=== PATIENT | female | born 1985 | race Caucasian/White ===

== ENCOUNTER 2016-07-10 08:24 | Observation (INO) ==
[2016-07-10 09:29] LABS: Bilirubin,Urine Negative (Negative); Blood,Urine Negative (Negative); Clarity,Urine Clear (Clear); Color,Urine Yellow (Yellow); Glucose,Urine (UA) Normal (Normal); Ketones,Urine Negative (Negative); Leukocyte Esterase,Urine Negative (Negative); Nitrite,Urine Negative (Negative); PH,Urine 6.5 pH Units (5.0-8.0); Protein,Urine Trace mg/dL (Neg-Trace); Specific Gravity,Urine 1.015 (1.010-1.025); Urobilinogen,Urine Normal (Normal)
--- NOTE | 2016-07-10 09:29 | OB/GYN History & Physical ---
Date of Encounter: 07/10/16 Time of Encounter: 09:29 Assessment and Plan (1) Spontaneous onset of labor Current visit: Yes Status: Acute This morning around 9 AM the patient is dilated to 3 cm and 90% effaced. Plan is to allow for spontaneous labor. Patient states she is going to try to avoid an epidural but is open to having one depending on how her labor proceeds. We will continue labor management and anticipate vaginal delivery History of Present Illness Chief complaint: Labor HPI: Ms. Cope is a 31 year old female at 38 weeks, 5 days gestation here because having contractions every 45 minutes this morning. Her has been uncomplicated and and she has not been taking any medications. She is group B strep negative, HIV nonreactive hep B nonreactive, RPR negative, rubella immune, blood type O positive. She is having discomfort with contractions but otherwise denies any current complaints Past Med Surg Social Fam HX - Past Medical History Medical history: no medical history Psychiatric history: no psych history - Social History Smoking Status: Never smoker Smokeless Tobacco Status: No Alcohol use: none Drug use: none - Family History Mother Hx Family Neuromuscular Disorders: Yes (CVA X2) Obstetrical History - Pregnancies : 1 Medications and Allergies Pnv95/Ferrous Fumarate/FA [ Caplet] 1 tab PO DAILY 07/10/16 [History] Allergies Sulfa (Sulfonamide Antibiotics) Allergy (Verified 07/10/16 08:54) Hives Review of System OB - Constitutional Constitutional ROS IM: no chills, no fever(s) - Cardiovascular Cardiovascular: no chest pain, no palpitations - Respiratory Respiratory: no dyspnea Exam - Comments Comments: GENERAL: Well-developed, well-nourished in no apparent distress. Patient is alert and oriented x3. HEENT: Head is normocephalic and atraumatic. Extraocular muscles are intact. HEART: S1 and S2 normal. Regular rate and rhythm. No murmurs , rub, or gallops. LUNGS: Clear to auscultation bilaterally. No wheezing, rales or rhonchi. ABDOMEN: Soft, nontender. MUSCULOSKELETAL: No deformities. No cyanosis, clubbing, edema in all the extremities. PERIPHERAL VASCULAR: pulses are 2/4 bilaterally. NEUROLOGIC: No motor or sensory deficits. No focal deficits. SKIN: No rashes, ulceration or induration present. Results All other labs normal. - VTE Reasons for not Prescribing Prophylaxis: Treatment not Indicated - Low risk for VTE
== END 2016-07-10 10:16 | disposition home or self-care (01) ==
LOC: 1NENULAB
PROVIDERS: ADMIT Registered Nurse; ATTEND Obstetrics & Gynecology

== ENCOUNTER 2016-07-11 16:36 | Inpatient (IN) ==
[~2016-07-11 16:36] MED LIST: *HR* FentaNYL (PF) 100 MCG/2 ML VIAL IVP PRN; Famotidine 20 MG/2 ML VIAL IVP PRN; Naloxone 0.4 MG/ML INJ IVP PRN; Ondansetron 4 MG/2 ML VIAL IVP PRN
--- NOTE | 2016-07-11 17:13 | OB/GYN History & Physical ---
Date of Encounter: 07/11/16 Time of Encounter: 17:10 Assessment and Plan (1) Spontaneous onset of labor Current visit: No Status: Acute -Monitor normal labor progression. - Nubain for pain - Zofran for nausea - Patient declining epidural at this time. History of Present Illness HPI: Ms. Cope is a 31 year old female who is being sent from the office for spontaneous labor. She is 5 cm dilated and 100% effaced and a bulgy bag of water. She is 38 weeks and 6 days at this time. Patient denies spontaneous rupture of membranes however she is having a bloody show at this time. She is having consistent contractions that she can feel. She states they started this morning. She denies any complications. Past Med Surg Social Fam HX - Past Medical History Source: patient Medical history: no medical history Psychiatric history: no psych history - Past Surgical History Surgical History: other (T and A, pilonidal cyst removal,) - Social History Smoking Status: Never smoker Smokeless Tobacco Status: No Alcohol use: none Drug use: none - Family History Mother History Unknown: Yes Hx Family Neuromuscular Disorders: Yes (CVA X2) Hx Family Neurologic Disorders: Yes (CVA) Obstetrical History - Pregnancies : 1 Para: 0 Medications and Allergies Pnv95/Ferrous Fumarate/FA [ Caplet] 1 tab PO DAILY 07/10/16 [History] Allergies Sulfa (Sulfonamide Antibiotics) Allergy (Verified 07/10/16 08:54) Hives Review of System OB All systems PM: reviewed and no additional remarkable complaints except as stated - Constitutional Constitutional ROS IM: no chills, no fever(s), no headache(s) - Nose, mouth, and throat Nose, mouth and throat: no dizziness, no dysphagia, no headache(s), no vertigo - Cardiovascular Cardiovascular: palpitations (1 event today.), no chest pain, no dyspnea, no edema, no leg edema, no pedal edema, no syncope - Respiratory Respiratory: no cough, no dyspnea - Gastrointestinal Gastrointestinal: dyspepsia, loose stools (For the past 2 days. None today.), nausea (With contractions.), vomiting (With contractions ), no abdominal pain, no hematemesis, no melena - Genitourinary Genitourinary: amenorrhea, no urinary frequency, no urinary incontinence, no urinary urgency - Integumentary Integumentary: no rash Exam - Constitutional Constitutional: well developed, well nourished, average body habitus - HEENT HEENT: PERRL, Normocephaly, Mucus Membranes Moist - Neck Neck exam: full ROM, trachea midline - Lungs Respiratory exam: CTAB - Cardiovascular Cardiovascular exam: RRR - Abdomen Abdomen: Present: bowel sounds normal, gravid, non tender - Extremities Extremities exam: full ROM, warm, radial pulses palpable and symetrical Deep Tendon Reflex Grade: 3+ Normal But Brisk - Vagina Vagina: Present: normal moisture - Cervix Dilation: 5 Effacement: 100 - Uterus Uterus exam: Present: normal size, normal contour Results Result Diagrams: 07/11/16 16:45 07/11/16 16:45 All other labs normal. - VTE Reasons for not Prescribing Prophylaxis: Treatment not Indicated - Low risk for VTE - Attending Attestation I examined this patient and my medical decision-making was reviewed with the Resident Physician. I agree with the documented findings, disposition and treatment plan as described with my edits included above. Leslie Varma DO
[2016-07-11] MEDS ORDERED: *HR* Nalbuphine 20 MG/ML AMPUL IVP PRN (17:21)
[2016-07-11] MEDS ORDERED: *HR* Nalbuphine 20 MG/ML AMPUL ONE (17:22)
[2016-07-11 17:48] LABS: Basophils # 0.1 K/mcL (0.0-0.2); Basophils % 0.9 %; Eosinophils # 0.1 K/mcL (0.0-0.6); Eosinophils % 0.7 %; Hematocrit 41.6 % (35.3-44.9); Hemoglobin 14.3 g/dL (11.5-15.4); Immature Granulocytes % 1.6 % (0-4); Lymphocytes # 2.9 K/mcL (0.6-4.6); Lymphocytes % 35.2 %; Mean Corpuscular HGB Conc 34.4 g/dL (31.6-35.5); Mean Corpuscular Hemoglobin 30.7 pg (28.0-33.3); Mean Corpuscular Volume 89.3 fL (83.0-100.0); Mean Platelet Volume 11.4 fL (9.4-12.4); Monocytes # 0.6 K/mcL (0.0-1.3); Monocytes % 7.5 %; Neutrophils # 4.5 K/mcL (1.6-8.9); Platelet Count 182 K/mcL (140-400); Red Blood Count 4.66 M/mcL (3.82-4.97); Red Cell Distribution Width 12.2 % (11.5-14.5); Segmented Neutrophils % 54.1 %
[2016-07-11 17:49] LABS: Alanine Aminotransferase 34 Units/L (0-55); Aspartate Amino Transferase 41 Units/L (5-34); BUN/Creatinine Ratio 15 (6-26); Blood Urea Nitrogen 18 mg/dL (7-20); Uric Acid 7.1 mg/dL (2.6-6.0); eGFR For African Americans > 60 (> 60); eGFR For Non-African Americans 54 (> 60)
[2016-07-11 18:03] LABS: Lactate Dehydrogenase 525 Units/L (159-327)
[2016-07-11] MEDS ORDERED: *HR* Labetalol 20 MG/4 ML SYRINGE IVP ONE ×2 (21:00→21:01)
--- NOTE | 2016-07-11 21:45 | Anesthesia Evaluation PreOp ---
Date of Encounter: 07/11/16 Time of Encounter: 21:40 - Past History Planned Operation: labor epidural Cardiac History: Denies any Significant Hx Pulmonary History: Denies Any Significant HX PATIENT ACCESS DIRECTOR History: Denies Any Significant HX Other Medical History: Denies Any Significant HX Anesthesia History: No Prior Anesthetic Complications (T&A, pilonidal cyst, wisdom teeth ext.), Past Anesthesia : Yes Alcohol Use: none Drug use: none Medications and Allergies Pnv95/Ferrous Fumarate/FA [ Caplet] 1 tab PO DAILY 07/10/16 [History] Allergies Sulfa (Sulfonamide Antibiotics) Allergy (Verified 07/10/16 08:54) Hives - Meds/Allergy Pre-op Review Medications Reviewed: Yes Allergies Reviewed: Yes Beta Blockers on Current Med List: No Anesthesia Results - Labs 07/11/16 16:45 07/11/16 16:45 Anesthesia Exam vss Height: 5'5" Weight: 83 kg NPO (# of Hours): 8 Pain Scale: 8 Pain Scale Used: Numeric (1 - 10) - HEENT Pupil (Motor): Pupils equal, EOMI Mallampati: II Teeth: Normal Oral Opening: Greater than 3 - PATIENT ACCESS DIRECTOR LOC: Oriented PATIENT ACCESS DIRECTOR Motor: Normal RUE, Normal LUE, Normal RLE, Normal LLE, Normal Face PATIENT ACCESS DIRECTOR Sensory: Normal: RUE, LUE, RLE, LLE, Face - Cardiac Rhythm: Regular Murmur: None - Pulmonary Breath Sounds: bilateral Clear Respiratory Effort: Symmetrical Anesthesia Assess/Plan ASA Score: 2 Modified Jacki Scale for Level of Consciousness: Cooperative, oriented, and tranquil Anesthetic Plan: Regional Monitoring Plan: Standard Monitors
[2016-07-11] MEDS ORDERED: *HR* FentaNYL (PF) 100 MCG/2 ML VIAL EP ONE (21:51)
[2016-07-11] MEDS ORDERED: Bupivacaine-MPF 0.25% 10 ML VIAL EP ONE (21:51)
[2016-07-11] MEDS ORDERED: Epidural Premix (fent/bupiv) 110 ML EP SCH (22:00)
[2016-07-11] MEDS ORDERED: Mag Hydrox/Al Hydrox/Simeth 30 ML UDC PO ONE (23:01)
[2016-07-11] MEDS ORDERED: Bupivacaine-MPF 0.25% 10 ML VIAL ONE (23:36)
[2016-07-11] MEDS ORDERED: Epidural Premix (fent/bupiv) 110 ML EP ONE (23:36)
[2016-07-11] MEDS ORDERED: *HR* FentaNYL (PF) 100 MCG/2 ML VIAL ONE (23:36)
--- NOTE | 2016-07-12 00:17 | Anesthesia Procedures ---
Date of Encounter: 07/12/16 Time of Encounter: 23:40 Procedures: Anesthesia - Epidural/Spinal Patient ID/Chart reviewed: Yes Patient examined: Yes OB Eval: Gestational age: 38 OB Eval: : 1 OB Eval: Hx Para: 0 OB Eval: Dilated at (cm): 7 OB Eval: Contractions: Non-stressed pattern Consent Obtained: Yes Supplemental Oxygen: None/Room Air Site Prep: Aseptic Technique, Sterile prep and drape, Povidone-Iodine 1% Patient position: upright Local Anesthetic: Lidocaine 1% Amount of Local Anesthetic used: 3 Touhy Needle Gauge: 18 Touhy Needle Depth (cm): 5 Catheter Depth at Skin (cm): 16 Test Dose (1.5% Lido + Epi): Volume given (mls): 3 Test Dose Result: Negative Loading Dose: 0.25% Marcaine (mls): 8 Loading Dose: Fentanyl (mcg): 100 Loading Dose Administered: Thru Catheter Infusion Med: 0.125% Bupivacaine w/ 2 mcg/ml Fentanyl Infusion Rate (mls/hr): [address]: Tegaderm, Tape Interspace Used: L3-L4 Loss of Resistance (DINO): Yes Blood: No CSF: No Paresthesia: No Vitals + FHT's: 3 Vital Signs Time 2340 2345 2350 2355 0000 0005 0010 BP 140/86 137/90 136/86 140/84 1128/80 126/79 123/75 Pulse 77 64 64 71 72 61 66 FHTs 140 140 140 140 140 140 140
--- NOTE | 2016-07-12 01:51 | OB Labor Progress Note ---
Date of Encounter: 07/12/16 Time of Encounter: 01:49 Labor Progress Note - Subjective Subjective: Patient comfortable after epidural. No headache or visual changes. - Vital Signs Vital Signs: 130's/80's post epidural - Cervix Cervix: 7-8 cm/100%/-2 vertex - Heart Tones Heart Tones: 125 baseline, category 1 - [place]: q 8-10 minute contractions - Interventions Interventions: AROM with clear fluid. - Plan Plan: Continue expectant management in anticipation of vaginal delivery
[2016-07-12] MEDS ORDERED: Epidural Premix (fent/bupiv) 110 ML EP ONE ×3 (06:17→16:22)
[2016-07-12] MEDS: Ringers Solution, Lactated 1,000 ML IVC SCH ×2 (07:34→15:45)
[2016-07-12] MEDS ORDERED: ROPIVACAINE HCL/PF 0.5% 30 ML VIAL ONE (09:44)
[2016-07-12] MEDS ORDERED: *HR* FentaNYL (PF) 100 MCG/2 ML VIAL ONE (09:44)
--- NOTE | 2016-07-12 09:48 | OB Labor Progress Note ---
Date of Encounter: 07/12/16 Time of Encounter: 09:20 Labor Progress Note - Subjective Subjective: Patient is very comfortable this morning. She states she is having vaginal pressure. - Vital Signs Vital Signs: BP140's/80's, one 160/90 while laying on her arm - Cervix Cervix: 9/100/0 vertex - Heart Tones Heart Tones: category 1 - Plan Plan: Continue EFM with expectant management in anticipation of vaginal delivery. Continue to monitor blood pressure closely.
--- NOTE | 2016-07-12 09:55 | Anesthesia Progress Note ---
Date of Encounter: 07/12/16 Time of Encounter: 09:51 Anesthesia Note - Note Note: 07/12/16 09:53 c/o increased discomfront in vaginal area, near complete, FHR stable per RN's. neg aspiration, 7ml 0.5% rop and 100mcg fent VSS. 5ml then 4ml.
[2016-07-12] MEDS ORDERED: Oxytocin 20 units/ LR 1000 mL 20 UNIT/1,000 ML BAG IVC ONE ×4 (12:08→20:21)
[2016-07-12] MEDS ORDERED: Lidocaine 1% 20 ML MDV ONE (18:16)
--- NOTE | 2016-07-12 19:04 | OB/GYN Procedure Note ---
Delivery - Delivery Date: 07/12/16 Provider: Gilles Dalal Intrapartum events: prolonged 2nd stage>2.5hr Delivery augmentation: rupture of membranes Delivery monitor: external FHT, external uterine Anesthesia: local, epidural Estimated Blood Loss: 300 - Infant (s) Infant A Infant Delivery Date: 07/12/16 Infant Delivery Time: 18:06 Presentation: vertex Position: PENG Gender: Male Viability: Viable Pounds: 8 Ounces: 8 at 1 minute: 5 at 5 mins: 5 at 10 mins: 5 Shoulder Dystocia: not encountered Placenta: spontaneous Cord: 3 umbilical vessels - Repair Laceration Description: Perineal - 2nd Degree - Complications Delivery complications: none - Disposition Mom disposition: stable in LDR Lottie disposition: taken to nursery - Comments Comments: Pt s/p from PENG presentation. Pt had labial edema and was exhausted therefore MLE was cut prior to delivery to prevent anterior tears and to expedite delivery. The heart tracing did show occ variables, but had excellent variabiltiy. No shoulder dystocia was experienced. 2nd degree MLE was repaired with 3-0 vicryl under local and epidural anesthesia. We had spont delivery of normal placenta with 3vc. Mother and recovered in LDR.
[2016-07-12] MEDS ORDERED: Oxytocin 20 units/ LR 1000 mL 20 UNIT/1,000 ML BAG IV SCH (20:21)
[2016-07-12] MEDS ORDERED: Measles/Mumps/Rubella Vacc 0.5 ML VIAL SQ PRN (20:21)
[2016-07-12] MEDS ORDERED: Ibuprofen 600 MG TABLET PO PRN (20:21)
[2016-07-12] MEDS ORDERED: Rho Immune Globulin 1,500 UNIT SYRINGE IM PRN (20:21)
[2016-07-13 05:34] LABS: Basophils % 0.2 %; Eosinophils % 0.3 %; Hemoglobin 11.7 g/dL (11.5-15.4); Immature Granulocytes % 0.8 % (0-4); Lymphocytes # 2.7 K/mcL (0.6-4.6); Lymphocytes % 19.7 %; Mean Corpuscular HGB Conc 35.5 g/dL (31.6-35.5); Mean Corpuscular Hemoglobin 31.5 pg (28.0-33.3); Mean Corpuscular Volume 88.7 fL (83.0-100.0); Mean Platelet Volume 10.9 fL (9.4-12.4); Monocytes # 0.9 K/mcL (0.0-1.3); Monocytes % 6.7 %; Neutrophils # 9.8 K/mcL (1.6-8.9); Platelet Count 134 K/mcL (140-400); Red Blood Count 3.72 M/mcL (3.82-4.97); Red Cell Distribution Width 12.4 % (11.5-14.5); Segmented Neutrophils % 72.3 %
[2016-07-13 05:46] LABS: Alanine Aminotransferase 40 Units/L (0-55); Aspartate Amino Transferase 58 Units/L (5-34); BUN/Creatinine Ratio 14 (6-26); Blood Urea Nitrogen 19 mg/dL (7-20); Uric Acid 8.3 mg/dL (2.6-6.0); eGFR For African Americans 57 (> 60); eGFR For Non-African Americans 47 (> 60)
[2016-07-13 05:47] LABS: Lactate Dehydrogenase 330 Units/L (159-327)
[2016-07-13] MEDS: Acetaminophen 325 MG TABLET PO PRN ×2 (07:58→20:06)
[2016-07-13] MEDS: Prenatal Vit/FA 1 EACH TABLET PO SCH (07:59)
--- NOTE | 2016-07-13 10:44 | OB/GYN Progress Note ---
Date of Encounter: 07/13/16 Time of Encounter: 10:42 - Assessment and Plan (1) Spontaneous onset of labor Current Visit: Yes Status: Acute (2) Status post vaginal delivery Current Visit: Yes Status: Acute (3) Pre-eclampsia Current Visit: Yes Status: Acute Repeat labs ordered for tomorrow. BP <160/100. Better thru the night. Will continue to monitor for s/sx of severe. Currently asymptomatic. Increased creatine likely due to viral diarrheal illness and the pre-eclampsia. PO hydration encouraged. Will discontinue mack because swelling has improved. Qualifiers: Trimester: third trimester Qualified Code(s): O14.93 - Unspecified pre- eclampsia, third trimester Subjective - Subjective Principal diagnosis: s/p vaginal delivery Interval history: Patient is doing well. Catheter is still in place. She is tolerating PO without difficulty. She is ambulating without difficulty. is going well. Patient reports: appetite normal, pain well controlled, ambulating normally, no nauseated [place]: doing well, nursing well Objective - Latest Vital Signs Latest vital signs: Vital Signs Temp Pulse Resp BP Pulse Ox 07/13/16 08:03 18 07/13/16 07:40 97.7 F 64 16 144/97 99 07/13/16 04:00 98 F 72 18 116/83 97 07/13/16 02:40 97.6 F 63 16 120/78 97 07/13/16 00:15 99.6 F 68 20 135/91 96 07/12/16 23:00 98.8 F 60 20 147/92 97 07/12/16 22:30 98.2 F 66 16 158/88 96 Intake and Output 07/12/16 07/13/16 07/13/16 23:59 07:59 15:59 Intake Total 1490 / 1490 Output Total 1500 / 1500 3475 / 3475 Balance -1500 / -1500 -1984 / Intake: Oral 1490 / 1490 Output: Urine 1750 / 1750 Urethral (Mack) 1350 / 1350 Straight Cath 1500 / 1500 Catheter 1725 / 1725 Other: Weight 79 kg - Exam Lungs: bilateral: normal Chest: Normal S1, Normal S2 Extremities: Present: normal, edema. Absent: tenderness Abdomen: Present: normal appearance, soft Uterus: Present: normal, firm. Absent: tenderness - Labs Labs: Laboratory Results - last 24 hr 07/13/16 07/13/16 05:23 05:23 WBC 13.5 H D RBC 3.72 L Hgb 11.7 D Hct 33.0 L MCV 88.7 MCH 31.5 MCHC 35.5 RDW 12.4 Plt Count 134 L MPV 10.9 Immature Gran % 0.8 Seg Neutrophils % 72.3 Lymphocytes % 19.7 Monocytes % 6.7 Eosinophils % 0.3 Basophils % 0.2 Neutrophils # 9.8 H Lymphocytes # 2.7 Monocytes # 0.9 Eosinophils # 0.0 Basophils # 0.0 BUN 19 Creatinine 1.33 H Est GFR ( Amer) 57 L Est GFR (Non-Af Amer) 47 L BUN/Creatinine Ratio 14 Uric Acid 8.3 H AST 58 H ALT 40 Lactate Dehydrogenase 330 H
[2016-07-14 06:16] LABS: Basophils % 0.3 %; Eosinophils # 0.2 K/mcL (0.0-0.6); Eosinophils % 1.8 %; Hematocrit 35.5 % (35.3-44.9); Hemoglobin 12.2 g/dL (11.5-15.4); Immature Granulocytes % 1.6 % (0-4); Lymphocytes # 2.2 K/mcL (0.6-4.6); Lymphocytes % 17.1 %; Mean Corpuscular HGB Conc 34.4 g/dL (31.6-35.5); Mean Corpuscular Volume 90.1 fL (83.0-100.0); Mean Platelet Volume 10.2 fL (9.4-12.4); Monocytes # 0.9 K/mcL (0.0-1.3); Monocytes % 6.7 %; Neutrophils # 9.2 K/mcL (1.6-8.9); Platelet Count 149 K/mcL (140-400); Red Blood Count 3.94 M/mcL (3.82-4.97); Red Cell Distribution Width 12.3 % (11.5-14.5); Segmented Neutrophils % 72.5 %
[2016-07-14 06:31] LABS: Alanine Aminotransferase 37 Units/L (0-55); Aspartate Amino Transferase 51 Units/L (5-34); BUN/Creatinine Ratio 15 (6-26); Blood Urea Nitrogen 18 mg/dL (7-20); Lactate Dehydrogenase 293 Units/L (159-327); Uric Acid 8.1 mg/dL (2.6-6.0); eGFR For African Americans > 60 (> 60); eGFR For Non-African Americans 54 (> 60)
[2016-07-14] MEDS: Prenatal Vit/FA 1 EACH TABLET PO SCH (07:52)
[2016-07-14] MEDS: Acetaminophen 325 MG TABLET PO PRN (07:53)
[2016-07-14 07:55] VITALS: BP 136/92
[2016-07-14] MEDS ORDERED: Hydrocortisone 1% OINT 28 GM TUBE TP PRN (08:53)
[2016-07-14] MEDS ORDERED: Benzocaine/Menthol 56 GM AEROSOL SPRAY TP PRN (08:53)
--- NOTE | 2016-07-14 08:57 | Discharge Summary ---
Date of Encounter: 07/14/16 Time of Encounter: 08:54 - Discharge Diagnosis (1) Breast feeding status of mother Priority: Secondary Status: Acute Comments: Continue support prn (2) Elevated serum creatinine Priority: Secondary Status: Acute Comments: Encourage PO hydration repeat labs in 48 hours (3) Status post vaginal delivery Priority: Primary Status: Acute Comments: Continue routine care discharge home today follow up with Dr. Varma in 4-6 weeks - Discharge Medications Prescriptions: Breast Pump [BREAST PUMP] 1 each .ROUTE AD #1 each Docusate [Colace] 100 mg PO BID #60 capsule Home Medications: Pnv95/Ferrous Fumarate/FA [ Caplet] 1 tab PO DAILY 07/10/16 [History] Breast Pump [BREAST PUMP] 1 each .ROUTE AD #1 each 07/14/16 [Rx] Docusate [Colace] 100 mg PO BID #60 capsule 07/14/16 [Rx] Vit/FA 1 each PO DAILY tablet 07/14/16 [Rx] Allergies/Adverse Reactions: Allergies Sulfa (Sulfonamide Antibiotics) Allergy (Verified 07/10/16 08:54) Hives Data Procedures and tests throughout hospitalization: Laboratory Tests 07/11/16 07/11/16 07/13/16 16:45 16:45 05:23 WBC 8.2 13.5 H D RBC 4.66 3.72 L Hgb 14.3 11.7 D Hct 41.6 33.0 L MCV 89.3 88.7 MCH 30.7 31.5 MCHC 34.4 35.5 RDW 12.2 12.4 Plt Count 182 134 L MPV 11.4 10.9 Immature Gran % 1.6 0.8 Seg Neutrophils % 54.1 72.3 Lymphocytes % 35.2 19.7 Monocytes % 7.5 6.7 Eosinophils % 0.7 0.3 Basophils % 0.9 0.2 Neutrophils # 4.5 9.8 H Lymphocytes # 2.9 2.7 Monocytes # 0.6 0.9 Eosinophils # 0.1 0.0 Basophils # 0.1 0.0 BUN 18 Creatinine 1.18 H Est GFR ( Amer) > 60 Est GFR (Non-Af Amer) 54 L BUN/Creatinine Ratio 15 Uric Acid 7.1 H AST 41 H ALT 34 Lactate Dehydrogenase 525 H 07/13/16 07/14/16 07/14/16 05:23 06:01 06:01 WBC 12.7 H RBC 3.94 Hgb 12.2 Hct 35.5 MCV 90.1 MCH 31.0 MCHC 34.4 RDW 12.3 Plt Count 149 MPV 10.2 Immature Gran % 1.6 Seg Neutrophils % 72.5 Lymphocytes % 17.1 Monocytes % 6.7 Eosinophils % 1.8 Basophils % 0.3 Neutrophils # 9.2 H Lymphocytes # 2.2 Monocytes # 0.9 Eosinophils # 0.2 Basophils # 0.0 BUN 19 18 Creatinine 1.33 H 1.17 H Est GFR ( Amer) 57 L > 60 Est GFR (Non-Af Amer) 47 L 54 L BUN/Creatinine Ratio 14 15 Uric Acid 8.3 H 8.1 H AST 58 H 51 H ALT 40 37 Lactate Dehydrogenase 330 H 293 Labs on day of discharge: Labs from last 24 hours 07/14/16 07/14/16 06:01 06:01 WBC 12.7 H RBC 3.94 Hgb 12.2 Hct 35.5 MCV 90.1 MCH 31.0 MCHC 34.4 RDW 12.3 Plt Count 149 MPV 10.2 Immature Gran % 1.6 Seg Neutrophils % 72.5 Lymphocytes % 17.1 Monocytes % 6.7 Eosinophils % 1.8 Basophils % 0.3 Neutrophils # 9.2 H Lymphocytes # 2.2 Monocytes # 0.9 Eosinophils # 0.2 Basophils # 0.0 BUN 18 Creatinine 1.17 H Est GFR ( Amer) > 60 Est GFR (Non-Af Amer) 54 L BUN/Creatinine Ratio 15 Uric Acid 8.1 H AST 51 H ALT 37 Lactate Dehydrogenase 293 Date of admission: 07/11/16 16:36 Primary care physician: Jany Montes CNP Consults: 07/12/16 20:21 Consult to Regional Marketing Manager [CONS] Routine Comment: Vaginal delivery, consult needed Discharging clinician: Yady Short Anticipated date of discharge: 07/14/16 - Patient Status Disposition: Home, Self-Care Condition: Good Functional capacity at discharge: independent ambulation - Discharge Instructions Follow Up With: Jany Montes CNP [Primary Care Provider] - Leslie Varma DO [Partnered Physician] - - Diet and Activity Activity: increase activity as tolerated Diet: regular diet Hospital Course Delivery: Episiotomy: midline Laceration: none Other procedures: none complications: none Discharge diagnosis: IUP at term delivered [place] baby: male (breast feeding) Time Attestation: Total time spent providing and/or coordinating discharge services: Time Spent: Less than 30 minutes Exam - Constitutional Vitals: Temp Pulse Resp BP Pulse Ox 98.0 F 78 20 136/92 96 07/14/16 07:53 07/14/16 07:53 07/14/16 08:02 07/14/16 07:53 07/14/16 07:53 General appearance IM: A&O X 3, pleasant, answers questions appropriately - Respiratory Respiratory exam: Present: CTAB - Cardiovascular Cardiovascular exam IM: Present: RRR, +S1, +S2 - GI/Abdominal GI/Abdominal exam IM: normal bowel sounds - Uterine Tone: Firm Uterus Position: 2 Fingers Below Umbilicus, Midline - Extremities Exam Extremities exam IM: Present: full ROM, normal capillary refill, normal inspection - Neurological Exam Neurological exam: oriented X3, reflexes normal
== END 2016-07-14 09:21 | disposition home or self-care (01) | DRG 775 ==
LOC: 1NENULAB → 1NENUOBS 07-12 20:19
PROVIDERS: ADMIT Obstetrics & Gynecology; ATTEND Obstetrics & Gynecology

== ENCOUNTER 2018-06-16 06:00 | Inpatient (IN) ==
[2018-06-16] MEDS ORDERED: Ringers Solution, Lactated 1,000 ML ONE (06:13)
[2018-06-16] MEDS ORDERED: Famotidine 20 MG/2 ML VIAL IVP PRN (06:37)
[2018-06-16] MEDS ORDERED: Naloxone 0.4 MG/ML INJ IVP PRN (06:37)
[2018-06-16] MEDS ORDERED: *HR* Nalbuphine 10 MG/ML AMPUL IVP PRN (06:37)
[2018-06-16] MEDS ORDERED: Ondansetron 4 MG/2 ML VIAL IVP PRN (06:37)
[2018-06-16] MEDS ORDERED: Metoclopramide 10 MG/2 ML VIAL IVP PRN (06:37)
[2018-06-16] MEDS ORDERED: Epidural Premix (fent/bupiv) 110 ML EP SCH (06:45)
[2018-06-16] MEDS ORDERED: Ringers Solution, Lactated 1,000 ML IVC SCH (06:45)
[2018-06-16 06:53] LABS: Basophils % 0.6 %; Eosinophils # 0.1 K/mcL (0.0-0.6); Eosinophils % 1.2 %; Hematocrit 39.1 % (35.3-44.9); Hemoglobin 13.3 g/dL (11.5-15.4); Immature Granulocytes % 0.7 % (0-4); Lymphocytes # 2.4 K/mcL (0.6-4.6); Lymphocytes % 35.3 %; Mean Corpuscular Hemoglobin 31.3 pg (28.0-33.3); Mean Platelet Volume 10.7 fL (9.4-12.4); Monocytes # 0.6 K/mcL (0.0-1.3); Monocytes % 9.2 %; Neutrophils # 3.6 K/mcL (1.6-8.9); Platelet Count 172 K/mcL (140-400); Red Blood Count 4.25 M/mcL (3.82-4.97); Red Cell Distribution Width 12.3 % (11.5-14.5)
[2018-06-16] MEDS ORDERED: miSOPROStol 25 MCG TABLET PO SCH (08:00)
[2018-06-16 08:54] LABS: Amphetamine Screen,Urine Negative ng/mL (Cutoff=1000); Barbiturate Screen,Urine Negative ng/mL (Cutoff=200); Benzodiazepines Screen,Urine Negative ng/mL (Cutoff=200); Cannabinoid Screen,Urine Negative ng/mL (Cutoff = 50); Cocaine Screen,Urine Negative ng/mL (Cutoff= 300); Opiate Screen,Urine Negative ng/mL (Cutoff=300)
[2018-06-16 08:59] LABS: Phencyclidine Screen,Urine Negative ng/mL (Cutoff=25)
--- NOTE | 2018-06-16 09:38 | Anesthesia Evaluation PreOp ---
Date of Encounter: 06/16/18 Time of Encounter: 09:36 - Past History Planned Operation: JANIA Cardiac History: Denies any Significant Hx Pulmonary History: Denies Any Significant HX CHECK SCALER History: Denies Any Significant HX Other Medical History: Denies Any Significant HX Anesthesia History: No Prior Anesthetic Complications, Past Anesthesia : Yes (40wks) Alcohol Use: none Drug use: none Medications and Allergies Vit/FA 1 each PO DAILY tablet 07/14/16 [Rx] Aspirin [Lo-Dose Aspirin EC] 81 mg PO 06/16/18 [History] Allergy/AdvReac Type Severity Reaction Status Date / Time Sulfa (Sulfonamide Allergy Hives Verified 07/10/16 08:54 Antibiotics) - Meds/Allergy Pre-op Review Medications Reviewed: Yes Allergies Reviewed: Yes Beta Blockers on Current Med List: No Anesthesia Results - Labs 06/16/18 06:37 Anesthesia Exam O2 Sat Height 1.65 m Weight 78.9 kg NPO (# of Hours): 8 Pain Scale: 0 Pain Scale Used: Numeric (1 - 10) - HEENT Pupil (Motor): Pupils equal Mallampati: II Teeth: Normal Oral Opening: Greater than 3 - CHECK SCALER LOC: Oriented CHECK SCALER Motor: Normal RUE, Normal LUE, Normal RLE, Normal LLE, Normal Face CHECK SCALER Sensory: Normal: RUE, LUE, RLE, LLE, Face - Cardiac Rhythm: Regular Murmur: None JVD: No Carotid Bruit: No - Pulmonary Breath Sounds: bilateral Clear Respiratory Effort: Symmetrical Anesthesia Assess/Plan ASA Score: 2 Level of consciousness: Cooperative, Oriented Anesthetic Plan: General (plan b), Epidural (plan a) Autologous Blood: Yes Monitoring Plan: Standard Monitors
--- NOTE | 2018-06-16 11:15 | OB Labor Progress Note ---
Date of Encounter: 06/16/18 Time of Encounter: 11:13 Labor Progress Note - Subjective Subjective: Pt denies complaints at this time. - Cervix Cervix: /-2 - Heart Tones Heart Tones: Category I - [place]: irregular UC - Interventions Interventions: Lemus balloon placed using sterile technique. Balloon inflated with 60ml sterile water. Pt tolerated well. - Plan Physician notified: Yes
--- NOTE | 2018-06-16 12:19 | OB/GYN History & Physical ---
Date of Encounter: 06/16/18 Time of Encounter: 08:20 Assessment and Plan (1) 40 weeks gestation of Current visit: Yes Status: Acute (2) Elective induction of labor planned Current visit: Yes Status: Acute Cytotec po already administered. Frias bulb will be placed. History of Present Illness Chief complaint: induction of labor HPI: Ms. Cope is a 33 year old female G 2 P-1-0-0-1 at 40 0/7 weeks presents for induction of labor at term. She reports good movements. She denies any labor symptoms prior to arrival. Her has been complicated by history of pre-e with her first . Past Med Surg Social Fam HX - Past Medical History Source: patient Medical history: no medical history Psychiatric history: no psych history - Past Surgical History Surgical History: other Additional surgical history: T&A, wisdom tooth, cyst removal - Social History Smoking Status: Never smoker Smokeless Tobacco Status: No Alcohol use: none Drug use: none - Family History Mother Living Status: Still Living Hx Family Cardiac Disorders: Yes (x2 stroke) Hx Family Respiratory Disorders: No Hx Family Cancer: No Hx Family GI Disorders: No Hx Family Genitourinary Disorders: No Hx Family Endocrine Disorder: No Hx Family Musculoskeletal Disorders: No Hx Family Neuromuscular Disorders: No Hx Family Neurologic Disorders: No Hx Family HEENT Disorders: No Hx Family Autoimmune Disorders: No Hx Family Reproductive Disorders: No Hx Family Psychosocial Disorders: No Hx Family Medical Disorders: No Obstetrical History - Pregnancies : 2 Para: 1 - History/Complications History/Complications: pre-e Medications and Allergies Vit/FA 1 each PO DAILY tablet 07/14/16 [Rx] Aspirin [Lo-Dose Aspirin EC] 81 mg PO 06/16/18 [History] Allergy/AdvReac Type Severity Reaction Status Date / Time Sulfa (Sulfonamide Allergy Hives Verified 07/10/16 08:54 Antibiotics) Review of System OB All systems PM: reviewed and no additional remarkable complaints except as stated Exam - Constitutional Constitutional: well developed, well nourished, no acute distress, average body habitus - HEENT HEENT: EOMI - Lungs Respiratory exam: CTAB - Cardiovascular Cardiovascular exam: RRR - Abdomen Abdomen: Present: bowel sounds normal, gravid, non tender - Vulva Vulva: bilateral: normal - Cervix Dilation: 1 Effacement: 75 Station: -3 Results Result Diagrams: 06/16/18 06:37 All other labs normal. US - abdomen: report reviewed (EFW 3490 gm (7 lb 11 oz) on 06/10/18) - VTE Reasons for not Prescribing Prophylaxis: Treatment not Indicated - Low risk for VTE
--- NOTE | 2018-06-16 15:47 | OB Labor Progress Note ---
Date of Encounter: 06/16/18 Time of Encounter: 15:43 Labor Progress Note - Subjective Subjective: Pt denies complaints at this time. - Cervix Cervix: 4/80/-2 - Heart Tones Heart Tones: Category I - [place]: irregular - Interventions Interventions: AROM for small amount clear fluid. - Plan Physician notified: Yes Physician notified details: Dr. Varma
[2018-06-16] MEDS ORDERED: Oxytocin 20 units/ LR 1000 mL 20 UNIT/1,000 ML BAG IVC SCH (16:00)
[2018-06-16] MEDS ORDERED: Oxytocin 20 units/ LR 1000 mL 20 UNIT/1,000 ML BAG IVC ONE ×2 (16:00→23:11)
[2018-06-16] MEDS ORDERED: *HR* FentaNYL (PF) 100 MCG/2 ML VIAL ONE (17:51)
[2018-06-16] MEDS ORDERED: Lidocaine -MPF 1% 5 ML AMPUL ONE (17:52)
[2018-06-16] MEDS ORDERED: *HR* Ropivacaine/PF 0.2% 20 ML VIAL ONE (17:52)
[2018-06-16] MEDS ORDERED: *HR* Ropivacaine/PF 0.2% 20 ML VIAL EP ONE (18:30)
[2018-06-16] MEDS ORDERED: *HR* FentaNYL (PF) 100 MCG/2 ML VIAL EP ONE (18:30)
--- NOTE | 2018-06-16 18:33 | Anesthesia Procedures ---
Addendum entered and electronically signed by Jose Miguel Coats CRNA 06/18/18 08:15: Addendum entered and electronically signed by Kyle Alejandre CRNA 06/16/18 23:21: Delivery Date: 06/16/18 Infant Delivery Time: 21:09 Original Note: Date of Encounter: 06/16/18 Time of Encounter: 18:31 Procedures: Anesthesia - Epidural/Spinal Patient ID/Chart reviewed: Yes Patient examined: Yes OB Eval: : 2 OB Eval: Hx Para: 1 OB Eval: Dilated at (cm): 5 OB Eval: Contractions: Non-stressed pattern Consent Obtained: Yes Supplemental Oxygen: None/Room Air Site Prep: Aseptic Technique Patient position: upright Local Anesthetic: Lidocaine 1% Amount of Local Anesthetic used: 3 Touhy Needle Gauge: 18 Touhy Needle Depth (cm): 5 Catheter Depth at Skin (cm): 5 Test Dose (1.5% Lido + Epi): Volume given (mls): 3 Test Dose Result: Negative Loading Dose: 0.25% Marcaine (mls): 7 Loading Dose: Fentanyl (mcg): 100 Loading Dose Administered: Thru Touhy Needle Infusion Med: 0.125% Bupivacaine w/ 2 mcg/ml Fentanyl Infusion Rate (mls/hr): [address]: Tegaderm Interspace Used: L3-L4 Loss of Resistance (DINO): Yes Blood: No CSF: No Paresthesia: No
[2018-06-16] MEDS ORDERED: EPHEDrine 50 MG/ML VIAL ONE (18:41)
--- NOTE | 2018-06-16 21:36 | OB/GYN Procedure Note ---
Delivery - Delivery Date: 06/16/18 Provider: Leslie Varma Intrapartum events: none Delivery induction: AROM, oxytocin, mack, misoprostol Delivery monitor: external FHT, external uterine Anesthesia: epidural Quantitated Blood Loss: 300 - Infant (s) Infant A Infant Delivery Date: 06/16/18 Delivery Time: 21:09 Presentation: vertex Position: PENG Route of delivery: Gender: Male Viability: Viable at 1 minute: 8 at 5 mins: 9 Shoulder Dystocia: encountered (60 seconds) Shoulder Dystocia Maneuvers: Tram maneuver, suprapubic pressure Specimens collected: cord blood Placenta: spontaneous Cord: 3 umbilical vessels - Repair Episiotomy: none Laceration Description: Perineal - 1st Degree - Complications Delivery complications: none Delivery comments: Called to room with patient complete and +2 station. Under maternal effort she delivered a viable male with weight pending at the time of dictation and Apgars 8 and 9 at one and 5 minutes respectively over a first-degree perineal laceration. Following delivery of the head there was no nuchal cord encountered. Shoulder dystocia was encountered that resolved with Tram and suprapubic after 60 seconds. The was placed on mom's abdomen cord was allowed to cease pulsations prior to being double clamped and cut with assistance from the father. Cord blood was collected. Placenta delivered spontaneously, complete, and intact with a three-vessel cord. The first-degree perineal laceration was repaired in standard fashion using 0 Vicryl. Mother delivered with epidural anesthesia. Mother and infant are recovering in the LDR in stable condition. - Disposition Mom disposition: stable in LDR disposition: stable in LDR
[2018-06-16] MEDS ORDERED: Acetaminophen 325 MG TABLET PO PRN (23:11)
[2018-06-16] MEDS ORDERED: Ibuprofen 600 MG TABLET PO PRN (23:11)
[2018-06-17 08:15] VITALS: BP 113/71
--- NOTE | 2018-06-17 08:35 | Discharge Summary ---
Date of Encounter: 06/17/18 Time of Encounter: 08:32 - Discharge Diagnosis (1) Breast feeding status of mother Priority: Secondary Status: Acute Comments: support prn RX for breast pump (2) Status post vaginal delivery Priority: Primary Status: Acute Comments: Continue routine care discharge home today follow up with Dr Varma in 4-6 weeks - Discharge Medications Prescriptions: Breast Pump [BREAST PUMP] 1 each .ROUTE AD #1 each Home Medications: Vit/FA 1 each PO DAILY tablet 07/14/16 [Rx] Breast Pump [BREAST PUMP] 1 each .ROUTE AD #1 each 06/17/18 [Rx] Allergies/Adverse Reactions: Allergy/AdvReac Type Severity Reaction Status Date / Time Sulfa (Sulfonamide Allergy Hives Verified 07/10/16 08:54 Antibiotics) Data Procedures and tests throughout hospitalization: Laboratory Tests 06/16/18 06/16/18 06/16/18 06:37 06:37 07:50 WBC 6.8 RBC 4.25 Hgb 13.3 Hct 39.1 MCV 92.0 MCH 31.3 MCHC 34.0 RDW 12.3 Plt Count 172 MPV 10.7 Immature Gran % 0.7 Seg Neutrophils % 53.0 Lymphocytes % 35.3 Monocytes % 9.2 Eosinophils % 1.2 Basophils % 0.6 Neutrophils # 3.6 Lymphocytes # 2.4 Monocytes # 0.6 Eosinophils # 0.1 Basophils # 0.0 Urine Opiates Screen Negative Ur Barbiturates Screen Negative Ur Phencyclidine Scrn Negative Ur Amphetamines Screen Negative U Benzodiazepines Scrn Negative Urine Cocaine Screen Negative U Marijuana (THC) Screen Negative Ur Drug Screen Interp See Below Hep Bs Antigen Nonreactive Labs on day of discharge: Labs from last 24 hours 06/16/18 07:50 Urine Opiates Screen Negative Ur Barbiturates Screen Negative Ur Phencyclidine Scrn Negative Ur Amphetamines Screen Negative U Benzodiazepines Scrn Negative Urine Cocaine Screen Negative U Marijuana (THC) Screen Negative Date of admission: 06/16/18 06:05 Primary care physician: Jany Montes CNP Consults: 06/16/18 23:11 Consult to [employer] [CONS] Routine Comment: Vaginal delivery, consult needed Discharging clinician: Yady Short Anticipated date of discharge: 06/17/18 - Patient Status Disposition: Home, Self-Care Condition: Good Functional capacity at discharge: independent ambulation - Discharge Instructions Follow Up With: Jany Montes CNP [Primary Care Provider] - Leslie Varma DO [Partnered Physician] - - Diet and Activity Activity: increase activity as tolerated Diet: regular diet Hospital Course Reason for admission: induction of labor Delivery: Episiotomy: none Laceration: 1st degree Other procedures: none complications: none Discharge diagnosis: IUP at term delivered [place] baby: male (breast feeding) Time Attestation: Total time spent providing and/or coordinating discharge services: Time Spent: Less than 30 minutes Exam - Constitutional Vitals: Temp Pulse Resp BP Pulse Ox 98.4 F 72 14 113/71 96 06/17/18 08:14 06/17/18 08:14 06/17/18 08:14 06/17/18 08:14 06/17/18 08:14 General appearance IM: A&O X 3, pleasant, answers questions appropriately - Respiratory Respiratory exam: Present: CTAB - Cardiovascular Cardiovascular exam IM: Present: RRR, +S1, +S2 - GI/Abdominal GI/Abdominal exam IM: normal bowel sounds - Uterine Tone: Firm Uterus Position: 1 Finger Below Umbilicus, Midline - Extremities Exam Extremities exam IM: Present: full ROM, normal capillary refill, normal inspection - Neurological Exam Neurological exam: alert, oriented X3, reflexes normal
[2018-06-17] MEDS ORDERED: Prenatal Vit/FA 1 EACH TABLET PO SCH (09:00)
[2018-06-17] MEDS: Oxytocin 20 units/ LR 1000 mL 20 UNIT/1,000 ML BAG IVC SCH ×2 (12:09→12:10)
== END 2018-06-17 15:49 | disposition home or self-care (01) | DRG 807 ==
LOC: 1NENULAB 06:05 → 1NENUOBS 23:36
PROVIDERS: ADMIT Obstetrics & Gynecology; ATTEND Obstetrics & Gynecology

== ENCOUNTER 2020-03-02 00:25 | Inpatient (IN) ==
[~2020-03-02 00:25] MED LIST changes: +EPHEDrine 50 MG/ML VIAL IVP PRN; +Epidural Premix (fent/bupiv) 110 ML EP SCH; +FLU Vac QV HD 20-21 (65YR+)/PF 0.7 ML SYRINGE IM ONE; +Lidocaine -MPF 2% 5 ML VIAL ONE; +Lidocaine 1% 20 ML MDV INFILT PRN; +Metoclopramide 10 MG/2 ML VIAL IVP PRN; +Ringers Solution, Lactated 1,000 ML ONE
[2020-03-02] MEDS ORDERED: Ringers Solution, Lactated 1,000 ML IVC SCH (00:30)
[2020-03-02 00:56] LABS: Basophils % 0.4 %; Eosinophils % 0.3 %; Hematocrit 44.2 % (35.3-44.9); Hemoglobin 15.1 g/dL (11.5-15.4); Immature Granulocytes % 0.6 % (0-4); Lymphocytes # 1.7 K/mcL (0.6-4.6); Lymphocytes % 17.1 %; Mean Corpuscular HGB Conc 34.2 g/dL (31.6-35.5); Mean Corpuscular Hemoglobin 32.1 pg (28.0-33.3); Mean Platelet Volume 10.9 fL (9.4-12.4); Monocytes # 0.5 K/mcL (0.0-1.3); Monocytes % 5.3 %; Neutrophils # 7.5 K/mcL (1.6-8.9); Platelet Count 170 K/mcL (140-400); Red Cell Distribution Width 12.5 % (11.5-14.5); Segmented Neutrophils % 76.3 %; White Blood Count 9.8 K/mcL (4.3-11.1)
[2020-03-02] MEDS ORDERED: Ropivacaine /PF 1% 100 MG/10 ML VIAL ONE (02:02)
[2020-03-02] MEDS ORDERED: Oxytocin 20 units/ LR 1000 mL 20 UNIT/1,000 ML BAG IVC ONE (02:30)
[2020-03-02] MEDS ORDERED: *HR* FentaNYL (PF) 100 MCG/2 ML VIAL ONE (02:31)
[2020-03-02] MEDS ORDERED: Measles/Mumps/Rubella Vacc 0.5 ML VIAL SQ PRN (05:19)
[2020-03-02] MEDS ORDERED: Oxytocin 20 units/ LR 1000 mL 20 UNIT/1,000 ML BAG IVC SCH (05:19)
[2020-03-02] MEDS ORDERED: Benzocaine/Menthol 56 GM AEROSOL SPRAY TP PRN (05:19)
[2020-03-02] MEDS ORDERED: *HR* Oxytocin 10 UNIT/ML VIAL IM ONE (05:19)
[2020-03-02] MEDS ORDERED: Rho Immune Globulin 1,500 UNIT SYRINGE IM PRN (05:19)
[2020-03-02] MEDS ORDERED: Acetaminophen 325 MG TABLET PO PRN (05:19)
[2020-03-02] MEDS: Ibuprofen 600 MG TABLET PO PRN ×2 (08:36→15:39)
[2020-03-02] MEDS: Prenatal Vit/FA 1 EACH TABLET PO SCH (08:38)
[2020-03-02] MEDS ORDERED: Prenatal Vit/FA 1 EACH TABLET PO SCH (09:00)
[2020-03-03] MEDS: Ibuprofen 600 MG TABLET PO PRN (07:31)
[2020-03-03] MEDS: Prenatal Vit/FA 1 EACH TABLET PO SCH (07:31)
[2020-03-03 08:43] VITALS: BP 110/73
[2020-03-03 09:15] LABS: Basophils % 0.4 %; Eosinophils # 0.1 K/mcL (0.0-0.6); Eosinophils % 1.4 %; Hematocrit 40.6 % (35.3-44.9); Hemoglobin 13.2 g/dL (11.5-15.4); Immature Granulocytes % 0.7 % (0-4); Lymphocytes # 1.2 K/mcL (0.6-4.6); Lymphocytes % 16.2 %; Mean Corpuscular HGB Conc 32.5 g/dL (31.6-35.5); Mean Corpuscular Hemoglobin 31.6 pg (28.0-33.3); Mean Corpuscular Volume 97.1 fL (83.0-100.0); Mean Platelet Volume 10.4 fL (9.4-12.4); Monocytes # 0.4 K/mcL (0.0-1.3); Monocytes % 5.3 %; Neutrophils # 5.8 K/mcL (1.6-8.9); Platelet Count 146 K/mcL (140-400); Red Blood Count 4.18 M/mcL (3.82-4.97); Red Cell Distribution Width 12.8 % (11.5-14.5); White Blood Count 7.7 K/mcL (4.3-11.1)
[2020-03-03] MEDS ORDERED: FLU Vac QV 20-21 (6Month+)/PF 0.5 ML SYRINGE IM ONE (10:47)
== END 2020-03-03 11:00 | disposition home or self-care (01) | DRG 807 ==
LOC: 1NENULAB → 1NENUOBS 05:19
PROVIDERS: ADMIT Student in an Organized Health Care Education/Training Program; ATTEND Student in an Organized Health Care Education/Training Program